=== PATIENT | female | born 1995 | race Caucasian/White ===

== ENCOUNTER → 2021-02-17 11:41 | Outpatient (CLI) | payer BC, SELFPAY | PROVIDERS: Visit Provider Nurse Practitioner Family | DX: Z20.822 Contact with and (suspected) exposure to COVID-19 (principal) | CPT/HCPCS: C9803; U0003; U0005 ==

== ENCOUNTER → 2021-02-27 11:26 | Outpatient (CLI) | payer BC, SELFPAY | PROVIDERS: Visit Provider Nurse Practitioner | DX: U07.1 COVID-19 (principal) | CPT/HCPCS: C9803; U0003; U0005 ==

== ENCOUNTER 2021-10-21 14:15 | Emergency (ER) | payer BC, SELFPAY ==
[2021-10-21 15:25] VITALS: BP 140/100; PULSE 97; RESP 20; TEMP 37.3; O2SAT 95; BMI 29.2
--- NOTE | 2021-10-21 15:42 | EXP.UTC ---
Discharge Plan Disposition Patient Disposition: Home, Self-Care Condition: Good Prescriptions Prescriptions: No Action azithromycin [Zithromax Z-Stu] 250 mg tablet 250 mg PO QDAY 5 Days Qty: 6 0RF Referrals Follow up/Referrals: Provider,Referral, [Primary Care Provider] - See instructions Clinical Impressions Clinical Impression: URI (upper respiratory infection) Instructions Patient Instructions: DI for Viral Upper Respiratory Infection -- Adult Discharge ED Provider: Felisa Crowe [facility] [place] HPI General Stated complaint: sore throat, PAIGE, body aches Mode of Arrival: Ambulatory Source of Information: Patient Limitations: No Limitations Time Seen by Provider: 10/21/21 15:42 Description of Symptoms (Recalled from Triage Doc. by RN): PATIENT STATES SHE NEEDS COVID TEST FOR WORK D/T HAVING A POSITIVE RAPID TEST TODAY. C/O FEVER HEENT Symptoms (Recalled from RN notes): No Resp Symptoms (Recalled from RN notes): No Skin Symptoms (Recalled from RN notes): No MS Symptoms (Recalled from RN notes): No Functional Status (Recalled from RN notes): WNL History of Present Illness Provider Complaint: Pt states that she started feeling poorly today with fever, cough, runny nose, and headache. She relates she took a home Covid test that came back positive. She states that she had several co-workers that have tested positive. Related Data Previous Rx's Medication Instructions Recorded azithromycin 250 mg tablet 250 mg PO QDAY 2 tabs day 1, then 05/25/18 (Zithromax Z-Stu) 1 tab days 2-5 5 days #6 tabs Allergies Allergy/AdvReac Type Severity Reaction Status Date / Time No Known Allergies Allergy Verified 10/21/21 15:40 Worker's Comp Is this a Worker's Comp case?: No [facility] Surgical History (Updated 10/21/21 @ 15:40 by Libia Prasad, RENE) [place] teeth extracted Social History (Updated 10/21/21 @ 15:40 by Libia Prasad, RENE) Smoking Status: Never smoker alcohol intake: current substance use type: denies use current occupational status: employed Travel in the last 8 weeks: None household members: family housing: house ROS Obtained: Yes All systems reviewed & no additional complaints except as documented Constitutional Constitutional: Reports as per HPI, Reports fever(s), Reports headache(s) and Reports malaise Eyes Eyes: Reports system reviewed and no additional complaints, except as documented ENT Ears, Nose, Mouth, and Throat: Reports headache(s), Reports nasal congestion, Reports nasal discharge and Reports sinus pressure Cardiovascular Cardiovascular: Reports system reviewed and no additional complaints, except as documented Respiratory Respiratory: Reports non-productive cough Gastrointestinal Gastrointestingal: Reports system reviewed and no additional complaints, except as documented Musculoskeletal Musculoskeletal: Reports system reviewed and no additional complaints, except as documented Integumentary/Breasts Skin/Breast: Reports system reviewed and no additional complaints, except as documented Neurologic Neurologic: Reports headache(s) Physical Exam General General appearance: alert and in no apparent distress Eye Eye exam: Present normal appearance ENT ENT exam: Present mucous membranes moist and other Expanded ENT Exam External ear exam: Present normal external inspection Nasal speculum exam: Bilateral: other (clear drainage noted) Mouth exam: Present normal external inspection Teeth exam: Present normal inspection Throat exam: Present normal inspection Neck Neck exam: Present normal inspection; Absent lymphadenopathy Respiratory Respiratory exam: Present normal lung sounds bilaterally; Absent wheezes Cardiovascular Cardiovascular exam: Present regular rate and normal rhythm Abdominal Exam Abdominal exam: Present soft Neurological Exam Neurological exam: Present alert and oriented X3 Psychiatric Psychiatric exam: Present normal affect and normal mood
[2021-10-21 15:57] VITALS: BP 140/100; PULSE 97; RESP 20; TEMP 37.3; O2SAT 95
== END 2021-10-21 16:00 | disposition home or self-care (01) ==
PROVIDERS: Emergency Provider Nurse Practitioner Family
DX: U07.1 COVID-19 (principal)
CPT/HCPCS: 99212; C9803; G0463; U0003; U0005